=== PATIENT | female | born 1990 | race Two or more races ===

== ENCOUNTER 2022-02-11 15:55 | Inpatient (IN) | payer OTHER ==
[~2022-02-11] VITALS: Ht 167.6 cm; Wt 3.6 kg
[2022-02-11] MEDS ORDERED: IRON325 MG PO (16:51)
[2022-02-11] MEDS ORDERED: PRENATAL + DHA1 EAC1 PO (16:51)
[2022-02-15] MEDS ORDERED: DOCUSATE SODIU100 MG PO (08:58)
[2022-02-15] MEDS ORDERED: IBUPROFEN800 MG PO (08:58)
[2022-02-15] MEDS ORDERED: OXYC1TAB9 PO (08:59)
== END 2022-02-15 14:38 | disposition home or self-care (01) | DRG 788 ==
LOC: EDBD 15:55 → LDR 15:55 → OB/GYN 02-12 17:09
PROVIDERS: ADMIT Obstetrics & Gynecology; ATTEND Obstetrics & Gynecology
PROC: 4A1HXCZ Monitoring of Products of Conception, Cardiac Rate, External Approach (ICD-10-PCS; 2022-02-11)
PROC: 3E0DXGC Introduction of Other Therapeutic Substance into Mouth and Pharynx, External Approach (ICD-10-PCS; 2022-02-12)
PROC: 3E033VJ Introduction of Other Hormone into Peripheral Vein, Percutaneous Approach (ICD-10-PCS; 2022-02-12)
PROC: 10D00Z1 Extraction of Products of Conception, Low, Open Approach (ICD-10-PCS; principal; 2022-02-12 14:00)
DX: O61.0 Failed medical induction of labor (principal); O13.3 Gestational [pregnancy-induced] hypertension without significant proteinuria, third trimester; O62.1 Secondary uterine inertia; Z3A.39 39 weeks gestation of pregnancy; Z37.0 Single live birth; Z20.822 Contact with and (suspected) exposure to COVID-19